=== PATIENT | female | born 1970 | race Caucasian/White ===

== ENCOUNTER 2018-06-03 19:47 | Emergency (ER) | payer OTHER ==
[2018-06-03] MEDS ORDERED: IBUPROFEN 600 MG TABLET (FP) PO ONE ×2 (20:09→21:15)
--- NOTE | 2018-06-03 20:16 | PDOC ---
History of Present Illness - General Chief Complaint: Injury Stated Complaint: FALL, BODY PAIN Time Seen by Provider: 06/03/18 19:51 - History of Present Illness Initial Comments: Day De Leon is a 48yo woman with a PMH of fibromyalgia who presents to the ED reporting back pain after a mechanical fall. She states that she was walking down stairs to take out the garbage when her feet slipped. She fell down approximately 5 stairs, landing mostly on her left flank and lower back. She denies any LOC or head injury. After the fall, she did not attempt to get up, but her and son helped her sit. She took her home Lyrica and Cymbalta without relief of her pain, after which she took 500mg acetaminophen without improvement either. At that point her daughter called an ambulance. Her and son then carried her to the sofa. Per EMS, her vitals were normal at the scene, and she was awake and alert. Ms De Leon reports that her pain is 10/10 in the low midline and left back/flank. She has chronic low back pain, and it is unclear whether the current midline pain is new or chronic; however, the left-sided pain is new. She is able to move her legs and reports intact sensation. She has no radiating pain. She denies injury to any other part of her body. Review of Systems - Review of Systems Comments:: General: No fevers, no chills, no weight or appetite change, no malaise HEENT: No changes in vision, no changes in hearing, no congestion, no sore throat CV: No chest pain, no palpitations, no LE edema Pulm: No SOB, no cough, no wheezing GI: No nausea or vomiting, no change in bowel habits, no melena : No frequency, no urgency, no dysuria Musc: +chronic back pain, +chronic joint pain (fibromyalgia), no joint swelling Skin: No rash, no lesions, no erythema Endo: No excessive thirst, no heat/cold intolerance Heme: No unusual bruising or bleeding, no swollen glands Neuro: No syncope, no numbness/tingling, no focal weakness Vasc: No claudication Psych: No recent change in mood, no SI or HI *Physical Exam - Physical Exam Comments: General: Uncomfortable but in no acute distress HEENT: PERRL, EOMI, MMM, voice normal, normal neck ROM, no LAD Cards: RRR, no murmur appreciated Pulm: Comfortable on room air, clear to auscultation bilaterally Abd: Soft, nontender, nondistended, obese : No CVA tenderness Back: TTP along left lumbar paraspinal muscles, TTP on lumbar spine in midline Ext: Atraumatic. No LE edema. ROM intact. Strength 5/5 and equal bilaterally at hips, knees, ankles, toes; unable to lift b/l legs off bed secondary to pain but hip strength intact when hips flexed Vasc: Extremities WWP. Palpable radial and pedal pulses bilaterally Skin: Normal color, no rashes or lesions; stretch markes on abdomen Neuro: A&Ox3, CN grossly intact, normal speech, motor/sensory grossly intact and symmetric Psych: Mood appropriate to situation ED Treatment Course - RADIOLOGY Radiology Studies Ordered: Category Date Time Status SPINE-LUMBAR SACRAL [RAD] Stat Radiology 06/03/18 20:09 Ordered Medical Decision Making - Medical Decision Making 06/03/18 20:11 Day De Leon is a 48yo woman with a PMH of fibromyalgia who presents after a mechanical fall on the stairs tonight. She was unable to control her pain at home with her usual Cymbalta, Lyrica plus 500mg acetaminophen so presented to the ED for evaluation. - No red flag symptoms on exam; LE strength and sensation intact, no saddle anesthesia - Does have lumbar tenderness; however unclear whether this is chronic or new. No visible injuries on exam - 600mg ibuprofen for pain - Xrays of lumbar/sacral spine for evaluation 06/03/18 21:27 - Xrays reviewed in ED with Dr Arreola. No fracture, dislocation or other injury to spine noted - Lidocaine patch ordered for left lumbar back pain - Discussed home care with Ms De Leon and her family, will refer to ortho for follow up if pain continues. All state understanding and agreement with this plan. Discussed with Dr Arreola. Nadira Briceno PGY1 *DC/Admit/Observation/Transfer Diagnosis at time of Disposition: Fall down stairs - Discharge Dispostion Disposition: HOME Condition at time of disposition: Stable Decision to Admit order: No - Referrals Referrals: Ezekiel Chandra MD [Primary Care Provider] - Anival Varner DO [Staff Physician] - - Patient Instructions Printed Discharge Instructions: DI for Musculoskeletal Pain Additional Instructions: Discharge Instructions: You were seen in the emergency department after a fall at home. You had xrays to make sure that you did not injury your spine, but there was no sign of fracture or dislocation. Your pain is most likely caused by a contusion (bump or bruise) to the muscles and soft tissue in your lower back. You received an anti-inflammatory medication and a numbing patch for pain control. Home Care and Follow Up: - You may use over the counter medications as needed for pain at home. 650- 1000mg acetaminophen (Tylenol) or 600mg ibuprofen (Motrin or Advil) can be used every 6-8 hours. If needed for continued pain, these medications may be alternated every 3-4 hours. For example, you recieved ibuprofen at 9pm, so you may take acetaminophen at midnight, ibuprofen at 3am, acetaminophen at 6am. - You had a lidocaine patch placed over the area of pain at 9:30pm. This may remain in place for 12 hours and then removed for 12 hours. If you find it helps your pain, you may buy additional patches at any pharmacy. - Try using an ice pack for 20 minutes every hour or a heating pad for additional pain control. These should NOT be used over the lidocaine patch, but you may place them over the areas of pain while the patch is off. - Do not stop moving around. As much as you can tolerate, continue to do light exercise and stretching exercises. Increase your activity level as much as you can tolerate daily. - If your pain does not improve over the next week, you have been referred to Dr Varner in orthopedics for follow up. - Seek immediate medical care if you have significant worsening of your symptoms , you are unable to move your legs, you have numbness/tingling in your legs, you have radiating pain down one or both legs, or you have urinary or stool incontinence. william sanabria: narciso talley. arlene ladayk xrays lilta'akud min 'anak lm 'iisabat aleumud alfaqrii alkhasi bik , walakun lm yakun hunak ' ayu ealamat ealaa nathanael cair 'aw khule. ealaa al'arjah bsbb al'na alkhasi bik min kidama (ethirat 'aw kadmat) 'iilaa aleudalat wal'ansijat alrakhwat fi ' asfal zahrik. laqad talaqayt dwa'an mdadana lilaltihab wariqeat khudush liltahakum fi al'na. alrieayat almanziliat walmutabaeat: - [place] aistikhdam al'adwiat bidun wasfat tibiyat eind alhajat lil'alam fi almanzil. [place] aistikhdam 650-1000mg min al'asitaminufayn (Tylenol) 'aw 600 malgh ibuprofen (Motrin 'aw Advil) kl 6-8 saeatin. 'iidha lazm al'amr liaistimrar al'na , ymkn 'an tatanawab hadhih al'adwiat kl 3-4 saeat. ealaa sabil almithal , aistalamat al'aybubrufin fi alssaeat 9 msa'an , ldhlk [place] tanmarcelle eiqar al'asitaminufin fi muntasaf allayl , wa'iibubrufin fi alssaeat 3 sbahana , wa'asitaminufin fi alssaeat 6 sbahana. - arlene ladayk lidukayiyn ruqeat wadaeat ealaa mintaqat al'alam fi alssaeat 9:30 masa'in. qad yabqaa hdha fi makanah limudat 12 saeatan thama yatimu 'iizalatuh limudat 12 saeatan. 'iidha wajadat 'anah yusaeid 'almak , [place] pushpa' baqe ' iidafiat fi 'ayi siadliat. - hawal aistikhdam kays thalaj limudat [address] saeat 'aw lawh tadfiat liltahakum fi al'na. la ynbghy 'an tustakhdam hadhih ealaa altashih yadwukayiyn , [place] dilma wadeuha ealaa manatiq al'alam baynama altashih qabalat. - la tatawaqaf leila [place]. biqadr ma dilma [facility] , aistamara fi mumarasat altamarin alkhafifat watamarin altamadudu. ziadat mustawaa nashatak biqadr jonnie perera [facility] ywmyana. - 'iidha lm yatahasan 'almak khilal al'usbue alqadim , faqad tamat '[place] ' iilaa alduktur mayhta fi jirahat aleizam lilmutabaeat. - 'atlub alrieayat altibiyat alfawriat 'iidha kunt tueani min tafaqum al'aerad bishakl kabir , fa'ant ghyr emiliano ealaa bernardino canales , 'aw khudr / yesenia fi parker , 'aw ladayk 'alam masbarrett li'asful 'aw saqikeny , 'aw ladayk sals alborlin 'aw franchesca. - Post Discharge Activity Forms/Work/School Notes: Back to Work
[2018-06-03 20:20] VITALS: BP 154/84; PULSE 74; TEMP 98.7
--- NOTE | 2018-06-03 20:42 | PDOC ---
Attending Attestation - Resident Resident Name: KaityNadira - ED Attending Attestation I have performed the following: I have examined & evaluated the patient, The case was reviewed & discussed with the resident, I agree w/resident's findings & plan, Exceptions are as noted - HPI HPI: 06/03/18 20:24 48y F pmhx of fibromyalgia presents to the ED sp mechanical fall with back pain. Pt was walking down a couple of steps taking out the garbage when she slipped down the step landing on her back. She denies any numbness/tingling/ ewakness. Notes +pain in the lower back. She notes she has chronic back pain from fibromyalgia, and thinks it hurts a bit more. She denies any extremity pain , abd pian, cp, headachem neck pain. Pt denies head injury or LOC. She was otherwise fell prior to falling. Physical exam: GENERAL: No acute distress ABD: Soft nontender CARD: RRR, No MRG BACK: No midline tenderness to the cervical, thoracic. Mild ttp to L2-3 region, no focal parapsinal ttp, no ecchymosis, step offs, crepitus Musculoskelatal: FROM of b/l shoulders, elbows, wrist. FROM of hips, knees, ankles - No signs of ecchymosis, erythema, or crepitus noted on palpation extremities, chest wall, clavicals, ribs, back. Will obtain lumbar xray to r/o fx meds for pain control will reasssess - Physicial Exam PE: 06/03/18 21:40 see above - Medical Decision Making 06/03/18 21:40 Xray negative for acute process/fracture pt feeling improved will dc the pt with pmd fu erturn precautions were discussed
[2018-06-03] MEDS ORDERED: LIDOCAINE 5% TOPICAL PATCH TP ONE (21:13)
[2018-06-03] MEDS ORDERED: ACETAMINOPHEN 325 MG TABLET (FP) ONE (21:14)
[2018-06-03] MEDS ORDERED: LIDOCAINE 5% TOPICAL PATCH ONE (21:28)
[2018-06-03] MEDS ORDERED: LIDOCAINE PATCH REMOVAL MC SCH (22:00)
== END 2018-06-03 21:55 | disposition home or self-care (01) ==
LOC: JER 19:47
DX: M54.5 Low back pain (principal); W10.8XXA Fall (on) (from) other stairs and steps, initial encounter; Y93.E9 Activity, other interior property and clothing maintenance; Y92.018 Other place in single-family (private) house as the place of occurrence of the external cause; Y99.8 Other external cause status; M79.7 Fibromyalgia
CPT/HCPCS: 72100-TC-FY; 99281-25

== ENCOUNTER 2021-01-19 10:51 | Emergency (ER) | payer OTHER ==
[2021-01-19 11:09] VITALS: BP 125/79; PULSE 90; TEMP 97.8; BMI 26.0
[2021-01-19] MEDS ORDERED: LIDOCAINE VISCOUS 2% ORAL/TOP 15 ML UNIT-DOSE CUP MM ONE (11:11)
[2021-01-19] MEDS ORDERED: diphenhydrAMINE HCL 12.5 MG/5 ML UNIT-DOSE CUPS PO ONE (11:11)
[2021-01-19] MEDS ORDERED: MAG HYDROX/AL HYDROX/SIMETH 30 ML UNIT-DOSE CUP PO ONE (11:11)
[2021-01-19] MEDS ORDERED: diphenhydrAMINE HCL 12.5 MG/5 ML PEDIATRIC LIQUID PO ONE (11:21)
[2021-01-19] MEDS ORDERED: MAG HYDROX/AL HYDROX/SIMETH 30 ML UNIT-DOSE CUP ONE (11:21)
[2021-01-19] MEDS ORDERED: LIDOCAINE VISCOUS 2% ORAL/TOP 15 ML UNIT-DOSE CUP ONE (11:21)
== END 2021-01-19 11:34 | disposition home or self-care (01) ==
LOC: FER 10:51
DX: K14.6 Glossodynia (principal)
CPT/HCPCS: 99283-25

== ENCOUNTER 2021-07-15 16:32 | Inpatient (IN) | payer OTHER ==
[2021-07-15 16:43] VITALS: BMI 27.3
[2021-07-15] MEDS ORDERED: ACETAMINOPHEN 500 MG TABLET (FP) PO ONE (18:02)
[2021-07-15] MEDS ORDERED: METHOCARBAMOL 500 MG TABLET PO ONE ×2 (18:02→18:05)
[2021-07-15] MEDS ORDERED: ACETAMINOPHEN 325 MG TABLET (FP) ONE (18:29)
[2021-07-15] MEDS ORDERED: METHOCARBAMOL 500 MG TABLET ONE (18:29)
[2021-07-15] MEDS ORDERED: PREGABALIN 75 MG CAPSULE PO ONE (18:48)
[2021-07-15] MEDS ORDERED: PREGABALIN 25 MG CAPSULE ONE (19:43)
[2021-07-15] MEDS ORDERED: PREGABALIN 100 MG CAPSULE ONE (19:43)
[2021-07-15] MEDS ORDERED: oxyCODONE HCL 5 MG TABLET PO PRN (22:36)
[2021-07-15 22:58] LABS: BASO % 0.9 % (0-2.0); EOS % 2.8 % (0-4.5); HEMATOCRIT 39.3 % (32.4-45.2); HEMOGLOBIN 13.6 GM/dL (10.7-15.3); LYMPH % 36.7 % (8-40); MCH 28.2 pg (25.7-33.7); MCHC 34.5 g/dl (32.0-36.0); MEAN CELL VOLUME 81.7 fl (80-96); MEAN PLT VOLUME 7.8 fl (7.5-11.1); MONO % 7.4 % (3.8-10.2); NEUT % 52.2 % (42.8-82.8); PLATELET COUNT 246 10^3/uL (134-434); RBC 4.82 M/mm3 (3.60-5.2); RDW 14.4 % (11.6-15.6); WHITE BLOOD COUNT 7.2 K/mm3 (4.0-10.0)
[2021-07-15] MEDS ORDERED: oxyCODONE HCL 5 MG TABLET ONE (22:59)
[2021-07-15 23:21] LABS: CALCIUM 8.7 mg/dL (8.5-10.1)
[2021-07-15 23:22] LABS: ALBUMIN 3.7 g/dl (3.4-5.0); BLOOD UREA NITROGEN 8.4 mg/dL (7-18)
[2021-07-15 23:25] LABS: CREATININE 0.6 mg/dL (0.55-1.3)
[2021-07-15 23:26] LABS: BILIRUBIN,TOTAL 0.4 mg/dL (0.2-1)
[2021-07-15] MEDS ORDERED: POTASSIUM CHLORIDE TABS 20 MEQ TABLET.ER (FP) PO ONE (23:34)
[2021-07-16 00:02] LABS: MAGNESIUM 2.2 mg/dL (1.8-2.4)
[2021-07-16] MEDS ORDERED: KETOROLAC TROMETHAMINE 15 MG/ML VIAL IVPUSH PRN (00:47)
[2021-07-16] MEDS ORDERED: morphine CARPU-JECT 2 MG/1 ML DISP.SYRIN IVPUSH PRN (00:47)
[2021-07-16] MEDS ORDERED: ACETAMINOPHEN 1000 MG/100 ML BAG IVPB PRN (00:49)
[2021-07-16 05:41] VITALS: BP 140/80; PULSE 76; TEMP 97.6
[2021-07-16] MEDS ORDERED: CYCLOBENZAPRINE HCL 5 MG TABLET PO SCH (06:00)
== END 2021-07-16 02:30 | disposition short-term general hospital (02) | DRG 347 ==
LOC: JER 16:32 → JERBED 22:42
PROVIDERS: ADMIT Hospitalist; ATTEND Hospitalist
DX: M54.2 Cervicalgia (principal); R20.2 Paresthesia of skin; M54.9 Dorsalgia, unspecified; M79.7 Fibromyalgia; I10 Essential (primary) hypertension; R20.0 Anesthesia of skin; W01.0XXA Fall on same level from slipping, tripping and stumbling without subsequent striking against object, initial encounter; Y93.89 Activity, other specified; Y92.219 Unspecified school as the place of occurrence of the external cause; Y99.8 Other external cause status
CPT/HCPCS: 36415; 70450-TC; 71045-TC-FY; 72125-TC; 72128-TC; 72131-TC; 72170-TC-FY; 73502-TC-LT-FY; 80053; 83735; 85025; 99285-25; C9803-CS; U0003; U0005

== ENCOUNTER 2024-02-29 09:43 | Emergency (ER) | payer OTHER ==
[2024-02-29 10:01] VITALS: TEMP 97.9; BMI 26.0
[2024-02-29] MEDS ORDERED: KETOROLAC TROMETHAMINE 30 MG/1 ML VIAL ONE (10:12)
[2024-02-29] MEDS ORDERED: METHOCARBAMOL 500 MG TABLET ONE (10:12)
[2024-02-29] MEDS ORDERED: LIDOCAINE 5% TOPICAL PATCH ONE (10:12)
[2024-02-29] MEDS: METHOCARBAMOL 500 MG TABLET PO ONE (10:35)
[2024-02-29] MEDS: KETOROLAC TROMETHAMINE 15 MG/ML VIAL IM ONE (10:35)
[2024-02-29 14:41] VITALS: BP 134/60; PULSE 68; RESP 20
[2024-02-29] MEDS: LIDOCAINE 5% TOPICAL PATCH TP ONE (15:06)
[2024-02-29] MEDS ORDERED: LIDOCAINE PATCH REMOVAL MC SCH (22:00)
== END 2024-02-29 15:05 | disposition home or self-care (01) ==
LOC: JER 09:43
PROC: 3E0233Z Introduction of Anti-inflammatory into Muscle, Percutaneous Approach (ICD-10-PCS; principal; 2024-02-29)
DX: M54.2 Cervicalgia (principal); M79.602 Pain in left arm; V79.50XA Passenger on bus injured in collision with unspecified motor vehicles in traffic accident, initial encounter
CPT/HCPCS: 70450-TC; 71045-TC-FY; 72125-TC; 72128-TC; 72170-TC-FY; 73030-TC-LT-FY; 73060-TC-LT-FY; 73090-TC-LT-FY; 73110-TC-LT-FY; 73130-TC-LT-FY; 73552-TC-LT-FY; 73552-TC-RT-FY; 73560-TC-LT-FY; 73560-TC-RT-FY; 73590-TC-LT-FY; 73590-TC-RT-FY; 99284-25